=== PATIENT | female | born 1970 | race Caucasian/White ===

== ENCOUNTER 2018-02-05 14:05 | Outpatient (CLI) | payer BC | END 2018-02-05 14:06 | disposition home or self-care (01) | LOC: BICMAMMO 14:05 | PROVIDERS: ATTEND Physician Assistant | DX: Z12.31 Encounter for screening mammogram for malignant neoplasm of breast (principal); N92.1 Excessive and frequent menstruation with irregular cycle; Z80.3 Family history of malignant neoplasm of breast | CPT/HCPCS: 76856; 77063; 77067 ==

== ENCOUNTER 2020-03-08 11:01 | Outpatient (CLI) | payer BC ==
--- NOTE | 2020-03-08 12:01 | MMO ---
Bilateral MAMMO Bilat Screen [facility]. CLINICAL HISTORY: Patient is 49 years old and is seen for screening. The patient has the following family history of breast cancer: mother, malignant (generic). The patient has no personal history of cancer. VIEWS: The views performed were: bilateral craniocaudal with tomosynthesis and bilateral mediolateral oblique with tomosynthesis. FILMS COMPARED: The present examination has been compared to a prior imaging study performed at [facility] on 02/05/2018. This study has been interpreted with the assistance of computer-aided detection. MAMMOGRAM FINDINGS: The breasts are heterogeneously dense, which could obscure a lesion on mammography. There are no suspicious masses, suspicious calcifications, or new areas of architectural distortion. IMPRESSION: THERE IS NO MAMMOGRAPHIC EVIDENCE OF MALIGNANCY. A ROUTINE FOLLOW-UP MAMMOGRAM IN 1 YEAR IS RECOMMENDED. THE RESULTS OF THIS EXAM WERE SENT TO THE PATIENT. ACR BI-RADS Category 1 - Negative MAMMOGRAPHY NOTE: 1. A negative mammogram report should not delay a biopsy if a dominant of clinically suspicious mass is present. 2. Approximately 10% to 15% of breast cancers are not detected by mammography. 3. Adenosis and dense breasts may obscure an underlying neoplasm. Reported by: WADE SIERRA MD Electonically Signed: [id number]
== END 2020-03-08 11:02 | disposition home or self-care (01) ==
LOC: BICMAMMO 11:01
PROVIDERS: ATTEND Physician Assistant
DX: Z12.31 Encounter for screening mammogram for malignant neoplasm of breast (principal); Z80.3 Family history of malignant neoplasm of breast
CPT/HCPCS: 77063; 77067

== ENCOUNTER 2021-05-22 12:37 | Outpatient (CLI) | payer BC | END 2021-05-22 12:38 | disposition home or self-care (01) | LOC: BICMAMMO 12:37 | PROVIDERS: ATTEND Nurse Practitioner Family | DX: Z12.31 Encounter for screening mammogram for malignant neoplasm of breast (principal); L65.9 Nonscarring hair loss, unspecified; L67.8 Other hair color and hair shaft abnormalities; R53.82 Chronic fatigue, unspecified; E04.2 Nontoxic multinodular goiter; Z86.39 Personal history of other endocrine, nutritional and metabolic disease; Z80.3 Family history of malignant neoplasm of breast | CPT/HCPCS: 76536; 77063; 77067 ==

== ENCOUNTER 2022-01-04 12:43 | Outpatient (CLI) | payer BC | END 2022-01-04 12:44 | disposition home or self-care (01) | LOC: BICULT 12:43 | PROVIDERS: ATTEND Nurse Practitioner Family | DX: R53.82 Chronic fatigue, unspecified (principal); E04.2 Nontoxic multinodular goiter | CPT/HCPCS: 76536 ==

== ENCOUNTER 2023-03-18 07:42 | Outpatient (CLI) | payer BC | END 2023-03-18 07:43 | disposition home or self-care (01) | LOC: ULT 07:42 | PROVIDERS: ATTEND Physician Assistant | DX: E04.1 Nontoxic single thyroid nodule (principal); Z86.39 Personal history of other endocrine, nutritional and metabolic disease | CPT/HCPCS: 76536 ==